=== PATIENT | female | born 1985 | race Caucasian/White ===

== ENCOUNTER 2018-04-02 11:02 | Emergency (ER) | payer OTHER ==
--- NOTE | 2018-04-02 13:30 | OBHP ---
Datetime: 04/02/2018 13:09 IP Adm Impression: Term, intrauterine IP Admit Plan: Observation/Evaluation; Discharge home Admit Comment, IP Provider: 32-year-old at 39.5 weeks (confirmed via 1st tri u/s) presents w ith suspected rupture of membranes since yesterday afternoon at 3pm (21 hours prior to presentation). She denies a gush of fluid but has noticed leaking of clear fluid with mucous every time she stands up. Her first resulted in a due to breech positioning. She denies abdominal cramp ing, contractions, and vaginal bleeding. She reports good movement. provider is Dr Diehl and she last saw him , 03/28. Her last BPP was at 37 weeks, TUSHAR 21.0. Patient is unsure of her n ext appointment with Dr Diehl. : CareDr Shanita mehta PMH: denies Meds: denies, PNV daily Allergy: denies FHx: mother - HTN, father - HTN Surgical: denies OBHx: 1x C/S 2015; 1x SAB 2005 Labs: Blood: B+, antibody neg HIV: neg RPR: neg HbsAg: neg Rubella: immune GBS: unknown PE: in no acute distress, comfortable Resp: no respiratory distress Abd: no tenderness to palpation Extremities: no edema Pelvic: professional healthcare representative present (Dr Mendez), no external lesions, no vaginal bleeding noted, speculum re veals no fluid pooling, nitrizine negative, /- ROS: denies headache, dizziness, nausea, vomiting, chest pain, difficulty breathing, diarrhea, con stipation, edema of extremities Assessment: 32-year-old at 39.5 weeks (confirmed via 1st tri u/s) presents with suspected rupture of membranes Plan: -Speculum exam revealed no pooling, nitrizine test negative -Patient declined BPP w/TUSHAR -NST: reactive, FHR 130, 15x15 accelerations, no decelerations, moderate variability -Emergent signs and symptoms warranting immediate trip back to ED discussed with patient and loida nd bedside. Case seen and discussed with Dr Mendez ---Nelly Morejon, PGY1 OB Hospitalist Addendum: Pt seen and examined by me. Agree w/ above. 32 yo at 39+5 wks w/ c/o LOF yesterday afternoon. Pt appeared comfortable lying in stretcher. Spec: light mucus in va ult, neg nitrazine. FHT reactive. Pt ordered for BPP and TUSHAR and pt declined the u/s and was discha rged home w/ labor precautions. Pt told to f/u w/ Dr. Diehl by the end of this week. (ES) Pelvic Type - PN: Adequate Extremities - PN: Normal Abdomen - PN: Normal Back - PN: Normal Breast - PN: Not Done Lungs - PN: Normal Heart - PN: Normal Thyroid - PN: Not Done Neurologic - PN: Not Done HEENT - PN: Not Done General - PN: Normal FHR - Baseline A Provider: 130 Contraction Comments Provider: occasional EGA AdmitDate IP: 39.5 Vital Signs Provider: Reviewed; Within Normal Limits IP Chief Complaint: Suspected ruptured membranes NICHD Variability Prov Fetus A: Moderate 6-25bpm NICHD Accel Fetus A IP Provider: 15X15 FHR Category Provider Fetus A: Category I NICHD Decel Fetus A IP Provider: None Dilatation, Provider: 1 Effacement, Provider: 50 Station, Provider: -2 Genitourinary Exam: Not Done DTRs - PN: Not Done
--- NOTE | 2018-04-02 13:44 | OBDCSUM ---
Datetime: 04/02/2018 13:40 Discharged to, Provider: Home Follow up at, Provider: Dr. Diehl Disch Instr Diet: Regular Discharge Instructions, Provider: Routine instructions given Discharge Diagnosis, Provider: False Labor - Undelivered Discharge Time: 04/02/2018 13:41 Follow up in weeks, Provider: 2-3 days
[2018-04-02 22:43] VITALS: BP 102/66; PULSE 69; RESP 16; TEMP 98.4; O2SAT 98
== END 2018-04-02 13:25 | disposition home or self-care (01) ==
LOC: H.EROB2 11:02
DX: O34.63 Maternal care for abnormality of vagina, third trimester (principal); N89.8 Other specified noninflammatory disorders of vagina; Z87.59 Personal history of other complications of pregnancy, childbirth and the puerperium; Z3A.39 39 weeks gestation of pregnancy; O47.1 False labor at or after 37 completed weeks of gestation